=== PATIENT | female | born 1990 | race Two or more races ===

== ENCOUNTER → 2021-10-01 | Emergency (ER) | payer MEDICAID ==
[~2021-10-01] VITALS: Ht 170.2 cm; Wt 80.3 kg
[~2021-10-01] MED LIST: AMOX-277 PO; PRED20TA2 PO; methylPREDNISolone SOD SUCC 125 MG/2 ML VL IM ONE
[2021-10-01 12:32] VITALS: BP 153/113
== END | disposition home or self-care (01) ==
LOC: ER 10:19
DX: J06.9 Acute upper respiratory infection, unspecified (principal); T78.40XA Allergy, unspecified, initial encounter; Z79.2 Long term (current) use of antibiotics; Z79.899 Other long term (current) drug therapy; Z20.822 Contact with and (suspected) exposure to COVID-19; Y92.89 Other specified places as the place of occurrence of the external cause
CPT/HCPCS: 36415; 71045; 87426; 96372; 99284; J2930